=== PATIENT | female | born 1985 | race Caucasian/White ===

== ENCOUNTER 2023-09-15 08:13 | Inpatient (IN) | payer BC ==
[2023-09-15] MEDS: LACTATED RINGERS 1,000 ML IV ONE (09:41)
[2023-09-15] MEDS ORDERED: TRANEXAMIC 1,000 MG/100ML-NACL 1,000 MG in EMPTY BAG 1 BAG IV PRN (09:53)
[2023-09-15] MEDS ORDERED: OXYTOCIN 10 UNIT/ML 1 ML VIAL IM PRN (09:53)
[2023-09-15] MEDS ORDERED: METHYLERGONOVINE 0.2 MG/ML 1 ML AMP IM PRN (09:53)
[2023-09-15] MEDS ORDERED: CARBOPROST TROMETHAMINE 250 MCG/ML 1 ML AMP IM PRN (09:53)
[2023-09-15] MEDS ORDERED: miSOPROStoL 200 MCG TAB PO PRN (09:53)
[2023-09-15 10:03] LABS: Basophils % (A) 0 %; Eosinophils # (A) 0.1 k/uL (0-0.7); Eosinophils % (A) 1 %; HCT 39.3 % (34.0-46.0); HGB 13.2 gm/dL (11.4-16.0); Lymphocytes # (A) 1.4 k/uL (1.0-4.8); Lymphocytes % (A) 21 %; MCH 33.4 pg (25.0-35.0); MCHC 33.5 g/dL (31.0-37.0); MCV 99.7 fL (80.0-100.0); Mean Platelet Volume 8.9; Monocytes # (A) 0.3 k/uL (0-1.0); Monocytes % (A) 4 %; Neutrophils # (A) 5.1 k/uL (1.3-7.7); Neutrophils % (A) 73 %; Platelet Count 196 k/uL (150-450); RBC 3.94 m/uL (3.80-5.40); RDW 13.4 % (11.5-15.5)
[2023-09-15] MEDS: CITRIC ACID-SODIUM CITRATE 15 ML CUP PO ONE (11:12)
[2023-09-15] MEDS: LACTATED RINGERS 1,000 ML IV SCH (11:12)
[2023-09-15] MEDS ORDERED: MORPHINE SULFATE (PF) 0.3 MG/0.3 ML SYR ONE (12:44)
[2023-09-15] MEDS ORDERED: OXYTOCIN 30 UNITS/500 ML NS BAG IV ONE (12:44)
--- NOTE | 2023-09-15 13:27 | P.OP ---
Date of Procedure: 09/15/23 Preoperative Diagnosis: IUP @ 394/7, mobility concerns, AMA Postoperative Diagnosis: same Procedure(s) Performed: Primary low transverse section Anesthesia: spinal Surgeon: Chelsea Boyle Reservation Agent #1: Letitia Serrano Estimated Blood Loss (ml): 642 IV fluids (ml): 1,000 Urine output (ml): 200 Pathology: none sent Condition: stable Disposition: observation Indications for Procedure: Orthopedic concerns, mobility issues Operative Findings: Normal uterus tubes and ovaries were appreciated, viable female delivered at 1300 weight 8 pounds 1 ounce Description of Procedure: The patient was prepped and draped in the usual fashion after spinal anesthesia was administered by anesthesia department. A Pfannenstiel incision was made and extended of the abdominal cavity without difficulty. The bladder peritoneum was elevated and incised and reflected distally. A 2 cm incision was made in the transverse plane of the lower uterine segment to enter the uterus at which time clear fluid was noted. The incision was extended in both directions using the bandage scissors. The head was encountered within the field and delivered up and through the incision where the nose and mouth were thoroughly suctioned. Remainder of the infant was delivered onto the surgical field where the cord was doubly clamped, cut, and the was passed for resuscitative measures with weight noted above. The placenta was delivered manually, intact, and was grossly normal with a grossly normal three-vessel cord. The uterus was exteriorized and the interior cavity of the uterus swept of any remaining placental and membranous fragments with a laparotomy sponge. The margins of the incision were grasped with Allis clamps and the incision closed in 2 layers. First layer was a running locking layer of 0 Vicryl from margin to margin followed by a second layer of imbricating 0 Vicryl from margin to margin. Any small points of bleeding were then made hemostatic with the Bovie. Once hemostasis was achieved, the posterior cul-de-sac was suctioned with a guard and the uterine and ovarian findings are as noted above. The uterus was replaced within the abdominal cavity and the gutters swept of any remaining blood fluid or clot. The incision was again reexamined and hemostasis was noted to be excellent. Any small point of bleeding were made hemostatic with the Bovie. Once hemostasis was achieved the parietal peritoneum was loosely reapproximated. The layer of muscles were examined and made hemostatic with the Bovie, and Surgicel powder. A slight amount of oozing was appreciated therefore Surgicel powder was placed.. Attention was then turned to the fascia which was closed with 2 running stitches of 0 Vicryl proceeding from the lateral margins to the midpoint. The subcutaneous tissues were irrigated, made hemostatic with the Bovie, and reapproximated with a running stitch of 30 Vicryl. The skin was reapproximated with 4-0 Vicryl. Estimated blood loss for the case was approximately 600 mL. All sponge instrument and needle counts are correct. There were no complications. The patient tolerated the procedure well and proceeded to the recovery room in stable condition. Both mother and are resting comfortably in recovery.
--- NOTE | 2023-09-15 13:28 | P.HPOB ---
History of Present Illness H&P Date: 09/15/23 -year-old at 30-4/7 weeks that presented to labor and delivery this morning with complaints of regular painful contractions. Patient was noted to be 3-4 cm. Patient has been receiving routine care with myself. Patient has had a complicated history of orthopedic injury, joint issues /concerns. Patient struggles with hip mobility and is currently dealing with bilateral knee pain, she does wear braces on bilateral knees. She does note good movement denies vaginal bleeding or loss of fluid. Discussion was had with patient at her last visit about delivery given her inability to tolerate positioning for a vaginal exam. Patient has increasing hip pain off steroids and was understanding of this concern. Patient was considering primary after our visit and discussion. Patient has now decided she would like to proceed with primary secondary to her ort hopedic issues, mobility issues bloodwork revealing a blood type of O positive. Review of Systems Constitutional: Denies chills, Denies fatigue, Denies fever Ears, nose, mouth and throat: Denies headache Cardiovascular: Denies leg edema Respiratory: Denies dyspnea Gastrointestinal: Denies nausea, Denies vomiting Genitourinary: Reports Musculoskeletal: left: hip pain, bilateral: knee pain, knee stiffness, knee swelling Past Medical History Past Medical History: Seizure Disorder Additional Past Medical History / Comment(s): focal seizures History of Any Multi-Drug Resistant Organisms: None Reported Past Surgical History: No Surgical Hx Reported Past Anesthesia/Blood Transfusion Reactions: No Reported Reaction Past Psychological History: No Psychological Hx Reported Smoking Status: Never smoker Past Drug Use History: None Reported - Past Family History Father Family Medical History: Hyperlipidemia Medications and Allergies Home Medications Medication Instructions Recorded Confirmed Type Aspirin 81 mg PO DAILY 09/15/23 09/15/23 History Doxylamine Succinate [Unisom] 25 mg PO DAILY 09/15/23 09/15/23 History Magnesium 200 mg PO DAILY 09/15/23 09/15/23 History Pnv,Calcium 72/Iron/Folic Acid 1 tab PO DAILY 09/15/23 09/15/23 History [Westab Plus Tablet] Allergies Allergy/AdvReac Type Severity Reaction Status Date / Time No Known Allergies Allergy Verified 09/15/23 08:49 Exam Osteopathic Statement: *. No significant issues noted on an osteopathic structural exam other than those noted in the History and Physical/Consult. Vital Signs Temp Pulse Resp BP Pulse Ox 09/15/23 09:49 97.5 F L 76 16 137/87 99 Intake and Output 09/14/23 09/15/23 09/15/23 22:59 06:59 14:59 Other: Weight 78.925 kg Targeted physical exam is performed on this date and supplies packer a well-nourished well-developed female in no acute distress, breathing is nonlabored, heart has a regular rhythm, abdomen is gravid, cervical exam done by RN on admission was noted to be 3-4 cm. heart tones returned be category 1 and she is arjun irregularly at this time. Results Result Diagrams: 09/15/23 09:35 Assessment and Plan (1) Term Current Visit: Yes Status: Acute Code(s): Z34.90 - ENCNTR FOR SUPRVSN OF NORMAL , UNSP, UNSP TRIMESTER SNOMED Code(s): 81708887 (2) Mobility impaired Current Visit: Yes Status: Acute Code(s): Z74.09 - OTHER REDUCED MOBILITY SNOMED Code(s): 54029225 (3) AMA (advanced maternal age) primigravida 35+ Current Visit: Yes Status: Acute Code(s): O09.519 - SUPERVISION OF ELDERLY PRIMIGRAVIDA, UNSPECIFIED TRIMESTER SNOMED Code(s): 20109757 Plan: 38-year-old at 39-4/7 weeks presents with regular painful contractions. Patient was noted to be 3-4 cm. Patient had been counseled on mode of delivery at her last visit secondary to her mobility issues, inability to tolerate positioning for a vaginal exam. Patient states she's had increasing hip discomfort after being off her steroids. Patient desires primary given her mobility issues. is reviewed and questions are answered. Patient states understanding and wishes to proceed with primary per her request
[2023-09-15] MEDS ORDERED: diphenhydrAMINE 50 MG/ML 1 ML VIAL IVP PRN ×2 (14:00)
[2023-09-15] MEDS ORDERED: diphenhydrAMINE 25 MG CAP PO PRN (14:00)
[2023-09-15] MEDS ORDERED: ONDANSETRON 4 MG/2 ML VIAL IVP PRN (14:00)
[2023-09-15] MEDS ORDERED: NALOXONE 0.4 MG/ML 1 ML VIAL IV PRN (14:00)
[2023-09-15] MEDS ORDERED: diphenhydrAMINE 50 MG CAP PO PRN (14:00)
[2023-09-15] MEDS ORDERED: LACTATED RINGERS 1,000 ML IV SCH (14:00)
[2023-09-15] MEDS ORDERED: ZOLPIDEM 5 MG TAB PO PRN (14:00)
[2023-09-15] MEDS ORDERED: METOCLOPRAMIDE 5 MG/ML 2 ML VIAL IVP PRN (14:00)
[2023-09-15] MEDS: ACETAMINOPHEN IV (For NPO) 1,000 MG in EMPTY BAG 1 BAG IVPB SCH (15:00)
[2023-09-15] MEDS: ACETAMINOPHEN TAB 500 MG TAB PO SCH (17:30)
[2023-09-15] MEDS: IBUPROFEN 600 MG TAB PO SCH (17:30)
[2023-09-15] MEDS: IBUPROFEN IV 800 MG in SODIUM CHLORIDE 0.9% 250 ML IV SCH (17:56)
[2023-09-15] MEDS: SENNOSIDES-DOCUSATE SODIUM 1 EACH TAB PO SCH (19:43)
--- NOTE | 2023-09-16 07:46 | P.PN ---
Progress Note - Text Progress Note Date: 09/16/23 (0720 D&C) Anesthesia Postop day 2 Subjective: Status Post section with Duramorph. Patient seen and examined. Doing well without complaint. VAS 0. 1 episode of vomiting yesterday. None since no pruritus. Denies fever. Gross lower extremity strength intact. Without apparent anesthetic complications. Objective: Vital signs reviewed Heart: Regular Rate Lungs: Good chest excursion Abdomen: Appears nondistended Assessment: Status post section with Duramorph postop day 1 Plan: 1. Continue current care with your medical management. Anticipated end to the duration of the Duramorph around surgery time today. You may see increased pain needs around this time. 2. This note was dictated using [employer] software. Please be advised there is a potential for misspellings or errors in metallurgical inspector.
[2023-09-16 07:48] LABS: Basophils % (A) 0 %; Eosinophils # (A) 0.1 k/uL (0-0.7); Eosinophils % (A) 1 %; HCT 28.9 % (34.0-46.0); Lymphocytes # (A) 1.6 k/uL (1.0-4.8); Lymphocytes % (A) 22 %; MCH 33.8 pg (25.0-35.0); MCHC 33.6 g/dL (31.0-37.0); MCV 100.5 fL (80.0-100.0); Macrocytosis Slight; Mean Platelet Volume 9.4; Monocytes # (A) 0.3 k/uL (0-1.0); Monocytes % (A) 5 %; Neutrophils # (A) 4.9 k/uL (1.3-7.7); Neutrophils % (A) 70 %; Platelet Count 171 k/uL (150-450); RBC 2.88 m/uL (3.80-5.40); RDW 13.7 % (11.5-15.5); WBC 7.1 k/uL (3.8-10.6)
[2023-09-16 07:53] LABS: HGB 9.7 gm/dL (11.4-16.0)
--- NOTE | 2023-09-16 12:27 | P.PNOBGPC ---
Subjective - Subjective Interval history: Feeling well overnight. No issues ambulating to the restroom. She is compla ining of some swelling in her right knee. Patient reports: Reports appetite normal, Reports voiding normally, Reports pain well controlled, Reports ambulating normally [place]: doing well, nursing well Objective - Vital Signs Latest vital signs: Vital Signs Temp Pulse Resp BP Pulse Ox 09/16/23 08:00 98.0 F 67 18 131/80 100 09/16/23 04:30 98.0 F 69 16 122/70 97 09/16/23 00:00 98.1 F 70 16 129/70 09/15/23 20:00 97.5 F L 69 16 109/66 98 09/15/23 18:02 98.3 F 72 16 117/65 99 09/15/23 15:45 65 14 111/67 09/15/23 15:15 76 16 123/63 100 09/15/23 14:50 69 16 129/70 09/15/23 14:20 64 16 113/64 09/15/23 14:05 66 16 122/70 09/15/23 13:50 65 16 118/73 99 09/15/23 13:35 96.5 F L 66 16 114/70 100 Intake and Output 09/15/23 09/16/23 09/16/23 21:59 06:59 14:59 Output Total Balance Output: Urine Uretheral ([place]) Output, Quantitative Blood Loss Other: Voiding Method # Voids 1 - Exam Extremities: Present: tenderness, edema Abdomen: Present: normal appearance, soft. Absent: distention, tenderness Incision: Present: normal, dry, intact. Absent: erythematous Uterus: Present: normal, firm. Absent: tenderness - Labs Labs: Abnormal Lab Results - Last 24 Hours (Table) 09/16/23 Range/Units 07:12 RBC 2.88 L (3.80-5.40) m/uL Hgb 9.7 L D (11.4-16.0) gm/dL Hct 28.9 L (34.0-46.0) % MCV 100.5 H (80.0-100.0) fL Assessment and Plan (1) AMA (advanced maternal age) primigravida 35+ Current Visit: Yes Status: Acute Code(s): O09.519 - SUPERVISION OF ELDERLY PRIMIGRAVIDA, UNSPECIFIED TRIMESTER SNOMED Code(s): 92250440 (2) Mobility impaired Narrative/Plan: Feeling of some right knee swelling and pain. Current Visit: Yes Status: Acute Code(s): Z74.09 - OTHER REDUCED MOBILITY SNOMED Code(s): 32621771 (3) Term Current Visit: Yes Status: Acute Code(s): Z34.90 - ENCNTR FOR SUPRVSN OF NORMAL , UNSP, UNSP TRIMESTER SNOMED Code(s): 24246671 (4) S/P section Current Visit: Yes Status: Acute Code(s): Z98.891 - HISTORY OF UTERINE SCAR FROM PREVIOUS SURGERY SNOMED Code(s): 983287603 Plan: Postop day 1 status post primary low transverse section secondary to labor at term with mobility impairment precluding vaginal delivery. She is recovering well. She is ambulating without difficulty however does note some swelling and tenderness in her right knee which she attributes to positioning during surgery. She is breast-feeding successfully and her pain is well- controlled. Possible discharge home tomorrow.
[2023-09-16] MEDS: SIMETHICONE 80 MG CHEWABLE PO PRN (18:59)
[2023-09-17] MEDS: PRENATAL VIT-IRON-FOLIC ACID 1 EACH TABLET PO SCH (02:01)
--- NOTE | 2023-09-17 12:25 | P.DS ---
Providers Date of admission: 09/15/23 09:42 Expected date of discharge: 09/17/23 Attending physician: Chelsea Boyle Primary care physician: Stated None - Discharge Diagnosis(es) (1) Term Current Visit: Yes Status: Acute (2) Mobility impaired Current Visit: Yes Status: Acute (3) AMA (advanced maternal age) primigravida 35+ Current Visit: Yes Status: Acute (4) S/P section Current Visit: Yes Status: Acute Hospital Course: This is a 38-year-old G1 now P1 that presents to labor and delivery on 09/14 with complaints of regular painful contractions. Patient was noted to be 3 to 4 cm. Patient had been receiving routine care with myself. Patient does struggle with multiple lower extremity orthopedic issues and did struggle with the ability of getting an a position to check her cervix. At her last visit prior to this presentation discussion was had regarding section given this mobility issue and possibility of exacerbating orthopedic injury with labor/delivery. Patient decided to proceed with primary . For full details in this patient please the dictated history and physical. Patient was taken back for primary . Patient delivered a viable female at 1300, weight of 8 pounds 1 ounce, Apgars of 8 and 9 at 1 and 5 minutes respectively. For full details on the please see the operative note. Patient's postoperative course has been uneventful. In this postoperative day #2 she is ambulating and voiding without difficulty. States her lochia is minimal to moderate. She is breast-feeding without difficulty. She would like discharge home later today. Patient Condition at Discharge: Good Plan - Discharge Summary New Discharge Prescriptions: No Action Pnv,Calcium 72/Iron/Folic Acid [Westab Plus Tablet] 1 tab PO DAILY Aspirin 81 mg PO DAILY Magnesium 200 mg PO DAILY Doxylamine Succinate [Unisom] 25 mg PO DAILY Discharge Medication List Aspirin 81 mg PO DAILY 09/15/23 [History] Doxylamine Succinate [Unisom] 25 mg PO DAILY 09/15/23 [History] Magnesium 200 mg PO DAILY 09/15/23 [History] Pnv,Calcium 72/Iron/Folic Acid [Westab Plus Tablet] 1 tab PO DAILY 09/15/23 [History] Follow up Appointment(s)/Referral(s): Chelsea Boyle DO [Doctor of Osteopathic Medicine] - 2 Weeks Patient Instructions/Handouts: (DC), (GEN) Activity/Diet/Wound Care/Special Instructions: No intercourse, tampons or douching. No heavy lifting greater than a gallon of milk. No driving for two weeks. Call with any fever, shakes or chills, with any pain not alleviated by over the counter meds, or with any quesions or concerns. Discharge Disposition: HOME SELF-CARE
--- NOTE | 2023-09-18 16:48 | P.PNOBGPC ---
Subjective - Subjective Principal diagnosis: Postop day 3, primary Interval history: Patient is doing well postoperatively. She is noting some increased left hip pain status post which she had prior to delivery and the reasoning behind delivery. Lochia is minimal to moderate. She is breast- feeding well. She denies concerns. She states her pain is well-controlled with oral pain medication. Patient reports: Reports appetite normal, Reports voiding normally, Reports pain well controlled, Reports ambulating normally [place]: doing well, nursing well Objective - Vital Signs Latest vital signs: Vital Signs Temp Pulse Resp BP Pulse Ox 09/18/23 08:00 98.1 F 78 15 123/83 99 09/18/23 00:00 97.9 F 72 16 131/88 Intake and Output 09/18/23 09/18/23 09/18/23 06:59 14:59 22:59 Other: # Voids 2 - Exam Extremities: Present: normal, edema Abdomen: Present: normal appearance Incision: Present: normal, dry, intact, other (bruising appreciated ) Assessment and Plan (1) Term Current Visit: Yes Status: Acute Code(s): Z34.90 - ENCNTR FOR SUPRVSN OF NORMAL , UNSP, UNSP TRIMESTER SNOMED Code(s): 92073509 (2) Mobility impaired Current Visit: Yes Status: Acute Code(s): Z74.09 - OTHER REDUCED MOBILITY SNOMED Code(s): 91760046 (3) AMA (advanced maternal age) primigravida 35+ Current Visit: Yes Status: Acute Code(s): O09.519 - SUPERVISION OF ELDERLY PRIMIGRAVIDA, UNSPECIFIED TRIMESTER SNOMED Code(s): 84595196 (4) S/P section Current Visit: Yes Status: Acute Code(s): Z98.891 - HISTORY OF UTERINE SCAR FROM PREVIOUS SURGERY SNOMED Code(s): 613667242 (5) Acute blood loss anemia Current Visit: Yes Status: Acute Code(s): D62 - ACUTE POSTHEMORRHAGIC ANEMIA SNOMED Code(s): 377881680 Plan: 38-year-old G1, P1 status post primary for mobility/orthopedic issues. Patient did note bruising around her incision this was evaluated and felt to be from the surgery itself. Patient is noting increased hip pain which was the reasoning behind delivery. Patient is counseled on lifting restrictions and is to make a postop appointment in 2 weeks. Should she have any concerns prior to this appointment she is urged to call the office.
[2023-09-18 17:00] VITALS: BP 137/81; PULSE 74; RESP 16; TEMP 98
== END 2023-09-18 17:35 | disposition home or self-care (01) | DRG 787 ==
LOC: FBPOP 08:13 → 4FBP 09:42
PROVIDERS: ADMIT Obstetrics & Gynecology; ATTEND Obstetrics & Gynecology Obstetrics
PROC: 10D00Z1 Extraction of Products of Conception, Low, Open Approach (ICD-10-PCS; principal; 2023-09-15 12:44)
DX: O99.354 Diseases of the nervous system complicating childbirth (principal); D62 Acute posthemorrhagic anemia; G40.909 Epilepsy, unspecified, not intractable, without status epilepticus; O99.02 Anemia complicating childbirth; Z37.0 Single live birth; Z3A.39 39 weeks gestation of pregnancy; Z74.09 Other reduced mobility; Z79.82 Long term (current) use of aspirin; M25.562 Pain in left knee; M25.561 Pain in right knee
CPT/HCPCS: 59025; 85025; 86850; 86900; 86901; 99213